=== PATIENT | female | born 1955 | race Caucasian/White ===

== ENCOUNTER 2017-10-25 09:09 | Day surgery (SDC) | payer OTHER ==
[2017-10-22 13:51] VITALS: BMI 21.9
[2017-10-25 09:39] LABS: #Basophils 0.1 thou/uL (0.0-0.2); #Eosinphils 0.1 thou/uL (0.0-0.7); #Lymphocytes 3.4 thou/uL (1.20-3.40); #Monocytes 0.6 thou/uL (0.11-0.59); #Neutrophils 6.6 thou/uL (1.40-6.50); %Eosinophils 0.7 % (0.0-10.0); %Lymphocytes 31.6 % (21.0-51.0); %Monocytes 5.8 % (0.0-10.0); Mean Corpuscular HGB CONC 32.3 g/dL (32.0-36.0); Mean Corpuscular Hemoglobin 28.3 pg (27.0-31.0); Mean Corpuscular Volume 87.5 fl (81.0-99.0); Mean Platelet Volume 7.1 fL (7.4-10.4); Platelet Count 223 thou/uL (130-400); RBC Distribution Width 11.7 % (11.5-14.5); Red Blood Cell (RBC) Count 5.66 mill/uL (4.20-5.40); White Blood Cell (WBC) Count 10.9 thou/uL (4.8-10.8)
[2017-10-25] MEDS ORDERED: Sodium Chloride 0.9% 10 ML ONE (09:53)
[2017-10-25] MEDS ORDERED: Famotidine/PF 20 mg/2ml Vial ONE (09:54)
[2017-10-25] MEDS ORDERED: Fentanyl 250 MCG/5 ML VIAL ONE ×2 (09:54→13:05)
[2017-10-25] MEDS ORDERED: Ondansetron HCl/PF 4 MG/2 ML Vial ONE ×3 (09:54→16:50)
[2017-10-25] MEDS ORDERED: Midazolam HCl 2 mg/2 ml Vial ONE (10:11)
[2017-10-25] MEDS ORDERED: CEFAZOLIN/Water 2 GM/20 ML SYRINGE ONE (10:11)
[2017-10-25 10:39] LABS: Anion Gap 14 mmol/L (10-20); BUN (Urea Nitrogen) 7 mg/dL (9.8-20.1); Calc. Creatinine Clearance 76 mL/min (70-130); Calcium 9.9 mg/dL (7.8-10.44); Carbon Dioxide 24 mmol/L (23-31); Chloride 107 mmol/L (98-107); Estimated GFR-MDRD 75; Glucose 95 mg/dL (80-115); Potassium 3.9 mmol/L (3.5-5.1); Sodium 141 mmol/L (136-145)
[2017-10-25] MEDS ORDERED: Promethazine HCl 25 MG/ML VIAL SLOW IVP PRN (11:16)
[2017-10-25] MEDS ORDERED: Promethazine HCl 25 MG/ML VIAL IM PRN ×2 (11:16→12:45)
[2017-10-25] MEDS ORDERED: Ondansetron HCl/PF 4 MG/2 ML Vial IVP PRN ×2 (11:16→12:47)
[2017-10-25] MEDS ORDERED: Ketorolac Tromethamine 30 MG/ML VIAL IVP PRN (11:41)
[2017-10-25] MEDS ORDERED: Meperidine HCl/PF 25 MG/ML VIAL SLOW IVP PRN (11:41)
[2017-10-25] MEDS ORDERED: HYDROmorphone 2 MG/ML VIAL SLOW IVP PRN (11:41)
[2017-10-25] MEDS ORDERED: Fentanyl 100 MCG/2 ML VIAL ONE (12:11)
[2017-10-25] MEDS ORDERED: Promethazine HCl 25 MG/ML VIAL ONE (12:18)
--- NOTE | 2017-10-25 12:20 | OP ---
DATE OF PROCEDURE: 10/25/2017 SURGEON: Bora Morris M.D. KEY ENTRY OPERATOR: Tasha Quiles PROCEDURE: Removal of hardware C4-C6, exploration of spinal fusion C4-C6, anterior cervical discecto my C6-7, interbody arthrodesis, intravertebral biomechanical device, local morselized autograft, lilly neralized bone matrix, anterior titanium instrumentation C6-7. PROCEDURE IN DETAIL: The patient was brought to the operating room and intubated. She was positione d supine in modest extension on a gel-filled donut. The previous incision was reopened and the prior hardware was identified. We removed the hardware without difficulty at C4-6, explored the spinal fu tracy and it seemed to be solid. We placed distraction across C6-7 and found the bone to be quite sof t. There was some arterial bleeding from the carotid root which had a quite tortuous course. These were from small branches of the carotid, which were coagulated. After distraction was placed the dis c was entirely removed and the neural elements decompressed. The bony endplates were decorticated fo r the purpose of arthrodesis and appropriately sized intravertebral biomechanical PEEK device was bro ught into the field, filled with demineralized bone matrix and local morselized autograft, and tapped in place securely at C6-7. Next, an anterior plate was brought into the field and secured to the pr evious screws at C6 as well as to C7 and this required using a 2 level plate because it was a very lo ng distance. This was secured by screws. The wound was extensively irrigated, immaculate hemostasis was secured. The wound was then closed in anatomic layers over a drain.
[2017-10-25] MEDS ORDERED: Promethazine 25 MG TAB PO PRN (12:45)
[2017-10-25] MEDS ORDERED: Bisacodyl 10 MG SUPP PR PRN (12:45)
[2017-10-25] MEDS ORDERED: diphenhydrAMINE 25 MG CAP PO PRN (12:45)
[2017-10-25] MEDS ORDERED: tiZANidine HCl 4 MG TAB PO PRN (12:45)
[2017-10-25] MEDS ORDERED: Promethazine HCl 12.5 MG SUPP PR PRN (12:45)
[2017-10-25] MEDS ORDERED: diphenhydrAMINE 50 MG/ML VIAL IVP PRN (12:45)
[2017-10-25] MEDS ORDERED: Milk Of Magnesia 30 ML UDCUP PO PRN (12:45)
[2017-10-25] MEDS ORDERED: HYDROcodone/Acetaminophen 7.5/325 mg Tablet PO PRN (12:45)
[2017-10-25] MEDS ORDERED: traMADol HCl 50 MG TAB PO PRN ×2 (12:45)
[2017-10-25] MEDS ORDERED: Morphine 4 MG/ML Carpuject SLOW IVP PRN (12:49)
[2017-10-25] MEDS ORDERED: Metoprolol Tartrate 5 MG/5 ML VIAL ONE (16:50)
[2017-10-25] MEDS ORDERED: Dexamethasone 20 MG/5 ML VIAL ONE (16:50)
[2017-10-25] MEDS ORDERED: PROPOFOL 200 MG/20 ML VIAL ONE (16:50)
[2017-10-25] MEDS ORDERED: Lidocaine 1% PF 5 ML VIAL ONE (16:50)
[2017-10-25] MEDS ORDERED: Glycopyrrolate 0.2 MG/ML 5 ML SYRINGE ONE (16:50)
[2017-10-25] MEDS ORDERED: Nicotine 21 MG PATCH TOP SCH (17:00)
[2017-10-25] MEDS: HYDROcodone/Acetaminophen 7.5/325 mg Tablet PO PRN (17:51)
[2017-10-25] MEDS: CEFAZOLIN/Water 2 GM/20 ML SYRINGE SLOW IVP SCH (19:25)
[2017-10-25] MEDS ORDERED: Latanoprost 0.005% Ophth Soln 2.5 ml Bottle L EYE SCH (21:00)
[2017-10-25] MEDS ORDERED: Rosuvastatin 5 MG TAB PO SCH (21:00)
[2017-10-26] MEDS: HYDROcodone/Acetaminophen 7.5/325 mg Tablet PO PRN ×3 (00:30→08:18)
[2017-10-26] MEDS: Sodium Chloride 0.9% 1,000 ML IV SCH ×2 (02:00→02:24)
[2017-10-26] MEDS: CEFAZOLIN/Water 2 GM/20 ML SYRINGE SLOW IVP SCH (03:44)
[2017-10-26 05:22] VITALS: BP 124/73; TEMP 98.1
[2017-10-26] MEDS ORDERED: Lisinopril 10 MG TAB PO SCH (09:00)
[2017-10-26] MEDS ORDERED: Multivitamin W/ Minerals 1 TAB PO SCH (09:00)
[2017-10-26] MEDS ORDERED: Loratadine 10 MG TAB PO SCH (09:00)
--- NOTE | 2017-10-28 17:27 | EKG ---
Test Reason : PREOP Blood Pressure : / mmHG Vent. Rate : 061 BPM Atrial Rate : 061 BPM P-R Int : 120 ms QRS Dur : 088 ms QT Int : 420 ms P-R-T Axes : 023 027 061 degrees QTc Int : 422 ms Normal sinus rhythm Normal ECG No previous ECGs available Confirmed by DR. Rachel FIELDS ([id number]) on 10/28/2017 5:27:32 PM Referred By: YA Confirmed By:DR. Rachel FIELDS
== END 2017-10-26 09:11 | disposition home or self-care (01) ==
LOC: SDC 09:09 → SJJU 12:45 → SDC 10-26 09:11
PROVIDERS: ATTEND Neurological Surgery
PROC: 0RT30ZZ Resection of Cervical Vertebral Disc, Open Approach (ICD-10-PCS; principal; 2017-10-25)
PROC: 0RG20A0 Fusion of 2 or more Cervical Vertebral Joints with Interbody Fusion Device, Anterior Approach, Anterior Column, Open Approach (ICD-10-PCS; principal; 2017-10-25)
DX: M47.12 Other spondylosis with myelopathy, cervical region (principal); I10 Essential (primary) hypertension; E78.5 Hyperlipidemia, unspecified; K21.9 Gastro-esophageal reflux disease without esophagitis; H40.9 Unspecified glaucoma; M19.90 Unspecified osteoarthritis, unspecified site; F17.210 Nicotine dependence, cigarettes, uncomplicated; F41.9 Anxiety disorder, unspecified; F32.9 Major depressive disorder, single episode, unspecified; Z79.899 Other long term (current) drug therapy; Z98.1 Arthrodesis status; Z98.890 Other specified postprocedural states
CPT/HCPCS: 36415; 76000; 80048; 85025; 93005; 93010; 96374; A4216; C1713; C1776; J0131; J1100; J2001; J2250; J2405; J2550; J2704; J3010; J3490; S0028

== ENCOUNTER 2017-11-11 15:53 | Outpatient (CLI) | payer OTHER ==
--- NOTE | 2017-11-11 17:08 | RAD ---
CERVICAL SPINE FOUR VIEWS: 11/11/17 HISTORY: Neck pain. Bones are demineralized. Postoperative changes of the spine are noted. There has been fusion with ant erior plate and screws placed at the C7-T1 level. Markers of a disc implant are within the confines o f the disc level. There is bony fusion above this level and marked disc narrowing at C4-5. IMPRESSION: 1. Postoperative changes of the spine. 2. Incidental note is made of some carotid bulb calcifications. POS: [facility]
== END 2017-11-11 15:54 | disposition home or self-care (01) ==
LOC: TBSIIMAG 15:53
PROVIDERS: ATTEND Neurological Surgery
DX: M50.30 Other cervical disc degeneration, unspecified cervical region (principal); I65.29 Occlusion and stenosis of unspecified carotid artery; Z98.1 Arthrodesis status
CPT/HCPCS: 72040

== ENCOUNTER 2017-12-29 15:28 | Outpatient (CLI) | payer OTHER ==
--- NOTE | 2017-12-29 16:50 | RAD ---
THREE VIEWS CERVICAL SPINE: Comparison: 11-11-17 History: Sepsis. Neck surgery six weeks ago. FINDINGS: AP, lateral, and open mouth odontoid views of the cervical spine shows the patient to be status post anterior fusion of C5 through C7. Hardware remains within the C6 and C7 levels. A disc spacer is seen at C6-7. No prevertebral soft tissue swelling is seen. There are degenerative changes at C4-5. No si gnificant change has occurred compared to the prior exam. IMPRESSION: Stable post-operative changes cervical spine. POS: [facility]
== END 2017-12-29 15:29 | disposition home or self-care (01) ==
LOC: TBSIIMAG 15:28
PROVIDERS: ATTEND Neurological Surgery
DX: M50.30 Other cervical disc degeneration, unspecified cervical region (principal); Z98.1 Arthrodesis status
CPT/HCPCS: 72040

== ENCOUNTER 2018-06-29 14:39 | Outpatient (CLI) | payer OTHER ==
--- NOTE | 2018-06-29 16:26 | CT ---
CT LUMBAR SPINE NONCONTRAST: 06/29/18 HISTORY: Low back pain. FINDINGS: Images including the retroperitoneum show an oval 0.8 cm calculus at the inferior pole of the right k idney. There is calcification in the arterial structures. Rightward convexed curvature of the lumbar spine. T12-L1: Osteophytosis. The central canal and neural foramina are patent. L1-2: Disc space narrowing and minimal degenerative retrolisthesis. Discogenic end plate sclerotic ch anges are most pronounced at this level. Posterior disc protrusion effaces the ventral aspect of the thecal sac by approximately 30%. Mild inferior extension of the protrusion with a small pocket of gas . Moderate right and severe left foraminal stenoses. L2-3: Posterior operative fixation. Interbody fusion material in place. The thecal sac and neural for joe are patent. L3-4: Interbody fusion material in place. Posterior osseous bridging from prior surgery. Central nolberto l and neural foramina are patent. L4-5: Interbody fusion material in place. Central canal and neural foramina are patent. L5-S1: Desiccation of the disc. Posterior disc bulge and circumferential degenerative changes with mi ld stenosis of the central canal. Severe right and moderate left foraminal stenoses. IMPRESSION: Extensive operative fixation of the lumbar spine. Posterior disc protrusion and foraminal stenoses at the L1-2 and L5-S1 levels. Nonobstructing right renal calculus, 8 mm. Atherosclerosis. POS: [facility]
--- NOTE | 2018-06-29 16:30 | RAD ---
THREE VIEW LUMBAR SPINE SERIES WITH FLEXION AND EXTENSION VIEWS 06/29/18 INDICATION: Lumbar radiculopathy. FINDINGS: Lateral views of the lumbar spine are performed. There is decreased penetration of the lumbar spine a s well as obscuration by overlying bowel gas, which does limit evaluation. Alignment is difficult to reliably discern. There is posterior metallic fusion involving upper/mid lumbar spine with multilevel intradiscal space device placement. Intervening partial osseous fusion is seen. Evaluation of flexion and extension radiographs is limited. IMPRESSION: Limited evaluation of alignment and of potential translational motion by overlying bowel content and decreased penetration of lumbar spine. Postoperative findings of the lumbar spine. Incidental prominent degenerative change of the mid thoracic spine. POS: [facility]
== END 2018-06-29 14:40 | disposition home or self-care (01) ==
LOC: TBSIIMAG 14:39
PROVIDERS: ATTEND Neurological Surgery
DX: M51.16 Intervertebral disc disorders with radiculopathy, lumbar region (principal); M99.83 Other biomechanical lesions of lumbar region; N28.1 Cyst of kidney, acquired; I70.90 Unspecified atherosclerosis; M47.814 Spondylosis without myelopathy or radiculopathy, thoracic region; Z98.1 Arthrodesis status
CPT/HCPCS: 72100; 72131

== ENCOUNTER 2018-08-02 12:34 | Outpatient (CLI) | payer OTHER ==
--- NOTE | 2018-08-02 13:03 | RAD ---
TWO VIEWS RIGHT HIP: Date: 08-02-18 History: Hip pain. FINDINGS: There is very minimal right hip osteoarthritis. There is no fracture or dislocation seen. No other os seous abnormality. IMPRESSION: No acute osseous abnormality right hip. POS: [facility]
--- NOTE | 2018-08-02 13:04 | RAD ---
TWO VIEWS LEFT HIP: Date: 08-02-18 History: Left hip pain. FINDINGS: There is no evidence of fracture, dislocation, or other osseous abnormality involving the left hip. P ost-surgical changes lower lumbar spine as well as degenerative changes are present. IMPRESSION: No acute osseous abnormality left hip. POS: [facility]
== END 2018-08-02 12:35 | disposition home or self-care (01) ==
LOC: TBSIIMAG 12:34
PROVIDERS: ATTEND Neurological Surgery
DX: M25.551 Pain in right hip (principal); M25.552 Pain in left hip